=== PATIENT | female | born 1940 | race Two or more races ===

== ENCOUNTER 2017-03-09 11:26 | Emergency (ER) | payer MEDICARE ==
--- NOTE | ~2017-03-09 | CT2 ---
[facility] A Service of [facility] & [facility] RADIOLOGY TEXT RESULTS PATIENT: THERESA NOGUEIRA LOCATION: [facility] : 44 UNIT #: [id number] AGE: [address]: Merlin Vernon MD SEX: F ORDER DR: [id number] [facility] [address] [place], [place] [address] [id number] MR#: [id number] #: [id number] NAME: THERESA NOGUEIRA : 1940 SEX: F STUDY DATE/TIME: 03/09/2017 14:58 UNIT: [facility] ROOM: STUDY DESCRIPTION: CT Abd and Pelv W Cont Attending Physician: Merlin Vernon M.D. Ordering Physician: Merlin Vernon M.D. Primary Care Physician: Calvin Brunner M.D. MEDICAL IMAGING REPORT This report is preliminary unless electronic signature is present EXAM CT abdomen and pelvis 03/09/2017 HISTORY Abdomen pain epigastric pain, nausea vomiting 2 days. No bowel movement in 9-[address] exam was performed with one or more of the following radiation dose reduction techniques: automatic exposure control, adjustment of mA and/or kV according to patient size, and iterative reconstruction. FINDINGS CT abdomen and pelvis performed with intravenous administration of all 100 mL Isovue-370. Enteric contrast not administered. No comparisons. Patchy linear densities in the bilateral lung bases are nonspecific and could reflect areas of atelectasis or pneumonitis. No dense airspace disease. There is mild cardiac enlargement. Correlate with any clinical concern for mild basilar edema. Fatty infiltration of the liver without focal suspicious abnormality. There is mild biliary ductal prominence with no obstructing process seen. Probably a function of the patient's prior cholecystectomy and physiologic in nature. Correlate with laboratory data. The spleen, pancreas, adrenal glands, kidneys unremarkable. No perinephric inflammatory change. The bilateral ureters are unremarkable. Urinary bladder unremarkable. CT Pelvis: No pelvic adenopathy. Uterus and adnexal regions unremarkable in appearance for a patient of this age. No fluid collections in pelvis. No pelvic or retroperitoneal adenopathy. Distal esophagus, stomach remarkable. Small bowel normal in caliber. Air and fluid seen throughout small bowel. Appendix normal. The colon shows moderate stool burden but no pathologic dilatation. No wall thickening or pericolonic inflammatory STS. [facility] A Service of [facility] RADIOLOGY TEXT RESULTS PATIENT: THERESA NOGUEIRA LOCATION: [facility] : 44 UNIT #: [id number] AGE: [address]: Merlin Vernon MD SEX: F ORDER DR: fito. No pathologic colonic dilatation. Extensive atherosclerotic arterial calcification. All 3 mesenteric arteries are patent. There is probably moderate luminal narrowing at origin of the superior mesenteric artery and moderate to severe narrowing at origin of inferior mesenteric artery. Small bowel and colon show no morphologic indications of mesenteric ischemia. The bony structures show degenerative change in the spine. No acute-appearing bony abnormality. The combination of somewhat short pedicles, posterior disc bulges and facet/ligament flavum hypertrophic change causing at least moderate spinal canal narrowing at the L3 - L4 and L4 - L5 levels. Potentially significant bilateral foraminal narrowing at these levels. Lumbar spine best further evaluated with elective MRI if patient is candidate. Calcified probable injection granulomata right buttock. Subcutaneous fat stranding in the bilateral periumbilical region could reflect chronic change or sites of medication administration. No subcutaneous air or fluid collection. IMPRESSION 1. Moderate stool burden throughout the colon without pathologic dilatation. No colonic wall thickening, obstructing abnormality, or pericolonic inflammatory change. The appearance could be physiologic in nature or could reflect mild constipation. 2. Small bowel and appendix unremarkable. 3. Patchy and linear densities at the bilateral lung bases are nonspecific. They could in part be atelectatic in nature. Mild pneumonitis or mild basilar edema could be considered in the appropriate clinical context. Weight should be given clinical assessment. 4. Mild cardiac enlargement. 5. Fatty infiltration of liver without focal parenchymal abnormality. 6. Status post cholecystectomy. Mild central biliary ductal prominence likely physiologic in nature and related to the prior cholecystectomy. There is no obstructing process seen. Correlate with clinical presentation and laboratory data. 7. Atherosclerotic arterial calcifications. No small bowel colonic findings to suggest mesenteric ischemia. Probably moderate luminal narrowing origin superior mesenteric artery of moderate to severe narrowing origin inferior mesenteric artery. 8. Degenerative changes in the spine. See discussion above. Lumbar spine best further evaluated with elective MRI if patient is candidate for CT. 9. Bilateral symmetric subcutaneous fat stranding adjacent to the umbilicus probably record reflecting chronic change. Alternately this could be related to the subcutaneous medicine administration in this region. Correlate with exam. Dictated by... [facility]. [facility] A Service of [facility] & [facility] RADIOLOGY TEXT RESULTS PATIENT: THERESA NOGUEIRA LOCATION: [facility] : 44 UNIT #: [id number] AGE: [address]: Merlin Vernon MD SEX: F ORDER DR: Henry Lerma M.D. THIS IS AN ELECTRONICALLY VERIFIED REPORT Henry Lerma M.D. at 03/12/2017 8:19 PM Ita TD: 03/09/2017 21:04 JOB #: [id number] MEDICAL IMAGING REPORT Page 1 of 1 COPY
[~2017-03-09 11:26] MED LIST: ALPRAZOLAM PO; AMARYL PO; ASPIRIN81 MG PO; CYMBALTA PO; GLUCOPHAGE850 MG PO; LEVEMIR FL100 UNIT/1 SQ; NO MEDICATIONS; NOVOLOG100 U/M2 SUBQ; PRAVACHOL20 MG PO
[2017-03-09 12:27] LABS: BASOPHIL% 0.9 % (0-2.5); EOSINOPHIL# 0.1 X10e3 (0-0.7); HEMATOCRIT 42.9 % (35.0-45.0); HEMOGLOBIN 14.4 gm/dL (12.0-16.0); LYMPHOCYTE# 1.5 X10e3 (1.0-3.5); LYMPHOCYTE% 27.2 % (17.0-45.0); MEAN CELL VOLUME 90.3 FL (83-96); MEAN CORPUSCULAR HEMOGLOBIN 30.2 PG (28-34); MEAN CORPUSCULAR HGB CONC 33.5 g/dL (30-36); MEAN PLATELET VOLUME 8.6 FL (6.5-11.5); MONOCYTE# 0.5 X10e3 (0-1.0); MONOCYTE% 8.4 % (3.0-12.0); NEUTROPHIL# 3.6 X10e3 (1.5-7.1); NEUTROPHIL% 62.5 % (40-75); PLATELET COUNT 198 X10e3 (140-420); RED BLOOD COUNT 4.75 X10e (3.90-5.30); WHITE BLOOD COUNT 5.7 X10e3 (4.0-10.5)
[2017-03-09 12:31] LABS: DIFF IND NO
[2017-03-09 13:00] LABS: ALBUMIN SERUM 4.1 g/dL (3.5-5.0); BILIRUBIN,TOTAL 1.2 mg/dL (0.2-2.0); CREATININE SERUM 0.5 mg/dL (0.6-1.4); GLOM FILT RATE Estimated 95.4 mL/min (>60); POTASSIUM 3.9 mmol/L (3.5-5.1); PROTEIN TOTAL SERUM 7.1 g/dL (6.0-8.3)
[2017-03-09 13:45] LABS: URINE SOURCE CLEAN CATCH
[2017-03-09 13:59] LABS: URINE APPEARANCE CLEAR; URINE BLOOD NEG (NEG); URINE COLOR DK YELLOW; URINE GLUCOSE NEG (NEG); URINE KETONE TRACE (NEG); URINE LEUKOCYTE ESTERASE 2+ (NEG); URINE NITRATE NEG (NEG); URINE PROTEIN 1+ (NEG); URINE SPECIFIC GRAVITY 1.021 (1.003-1.035)
[2017-03-09 14:05] LABS: CULTURE INDICATED? YES; U HYALINE CASTS AUWI 0-2 /[LPF]; URBCS1 AUWI 0-2 /[HPF] (0-2); URINE BACTERIA AUWI NEG (NEGATIVE); URINE SQUAMOUS EPITHELIAL CELL NONE SEEN /[HPF]
[2017-03-09 14:18] LABS: URINE BILIRUBIN NEG (NEG)
== END 2017-03-09 16:35 | disposition home or self-care (01) ==
LOC: CED 11:26
PROVIDERS: Emergency Medicine
DX: N39.0 Urinary tract infection, site not specified (principal); K59.00 Constipation, unspecified; R53.1 Weakness; E11.9 Type 2 diabetes mellitus without complications; E78.5 Hyperlipidemia, unspecified; I10 Essential (primary) hypertension; Z79.82 Long term (current) use of aspirin; Z87.442 Personal history of urinary calculi; Z79.4 Long term (current) use of insulin; Z79.899 Other long term (current) drug therapy
CPT/HCPCS: 74177; 80053; 81003; 83690; 85025; 87086; 96361; 96374; 96375; 96376; 99284; J0696; J2270; J2405; Q9967